=== PATIENT | female | born 2000 | race Caucasian/White ===

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

== ENCOUNTER 2020-06-14 10:04 | Emergency (ER) | payer OTHER ==
[~2020-06-14] VITALS: Ht 157.5 cm; Wt 90.7 kg
[~2020-06-14 10:04] MED LIST changes: +COMPAZINE10 MG PO; +IBUP600 PO
[2020-06-14] MEDS ORDERED: ALBU90OI INH (11:49)
== END 2020-06-14 11:53 | disposition home or self-care (01) ==
LOC: ER 10:04
DX: T59.91XA Toxic effect of unspecified gases, fumes and vapors, accidental (unintentional), initial encounter (principal); J68.3 Other acute and subacute respiratory conditions due to chemicals, gases, fumes and vapors; J40 Bronchitis, not specified as acute or chronic; Z86.718 Personal history of other venous thrombosis and embolism
CPT/HCPCS: 94640; 99283; A9270

== ENCOUNTER 2020-08-19 12:12 | Emergency (ER) | payer OTHER ==
[~2020-08-19] VITALS: Ht 157.5 cm; Wt 91.2 kg
[2020-08-19] MEDS ORDERED: Crutch1 EACH XX (13:23)
[2020-08-19] MEDS ORDERED: TRAM50 PO (13:23)
[2020-08-19] MEDS ORDERED: IBUP600 PO (13:23)
== END 2020-08-19 13:33 | disposition home or self-care (01) ==
LOC: ER 12:12
DX: S93.421A Sprain of deltoid ligament of right ankle, initial encounter (principal); Z87.442 Personal history of urinary calculi; V49.9XXA Car occupant (driver) (passenger) injured in unspecified traffic accident, initial encounter; Y92.410 Unspecified street and highway as the place of occurrence of the external cause
CPT/HCPCS: 29515; 73610; 73630; 99283-25; A9270

== ENCOUNTER 2020-11-06 14:16 | Emergency (ER) | payer OTHER ==
[~2020-11-06] VITALS: Ht 157.5 cm; Wt 93.0 kg
[~2020-11-06 14:16] MED LIST changes: +Crutch1 EACH XX
== END 2020-11-06 15:35 | disposition home or self-care (01) ==
LOC: ER 14:16
DX: S93.401A Sprain of unspecified ligament of right ankle, initial encounter (principal); X50.1XXA Overexertion from prolonged static or awkward postures, initial encounter
CPT/HCPCS: 29515; 73610; 99283-25; L1906

== ENCOUNTER 2020-11-17 10:47 | Emergency (ER) | payer OTHER ==
[~2020-11-17] VITALS: Ht 157.5 cm; Wt 91.6 kg
[2020-11-17 11:52] LABS: Source, Urine Clean Catch
[2020-11-17 12:00] LABS: Appearance, Urine Clear (Clear); Bilirubin, Urine Neg (Neg); Blood, Urine Neg (Neg); Color, Urine Yellow (P-Yellow); Glucose Qualitative, Urine Neg (Neg); Ketones, Urine Neg (Neg); Leukocyte Esterase, Urine Neg (Neg); Nitrite, Urine Neg (Neg); Protein, Urine Neg (Neg); Urobilinogen, Urine NORM (Normal)
[2020-11-17 12:17] LABS: BASOPHILS ABSOLUTE AUTO 0.05 K/mm3 (0.00-0.23); BASOPHILS PERCENT AUTO 1 % (0-2); EOSINOPHILS ABSOLUTE AUTO 0.23 K/mm3 (0.00-0.68); EOSINOPHILS PERCENT AUTO 3 % (0-6); Hematocrit 40.2 % (33.0-51.0); Hemoglobin 12.9 g/dL (11.5-16.0); IMMATURE GRAN ABSOLUTE AUTO 0.02 K/mm3 (0.00-0.10); IMMATURE GRAN PERCENT AUTO 0 % (0-1); LYMPHOCYTES ABSOLUTE AUTO 2.59 K/mm3 (0.84-5.20); LYMPHOCYTES PERCENT AUTO 37 % (21-46); MONOCYTES PERCENT AUTO 7 % (4-13); Mean Corpuscular HGB 27.8 pg (26.0-34.0); Mean Corpuscular HGB Conc 32.1 g/dL (31.5-36.5); Mean Corpuscular Volume 87 fL (80-100); Mean Platelet Volume 10.1 fL (9.1-12.4); NEUTROPHILS ABSOLUTE AUTO 3.59 K/mm3 (1.96-9.15); NEUTROPHILS PERCENT AUTO 51 % (41-73); Platelet Count 290 K/mm3 (150-400); RDW Coefficient Variation 13.2 % (11.7-14.2); RDW Standard Deviation 41.3 fL (35.1-46.3); Red Blood Cell Count 4.64 M/mm3 (3.80-5.20); White Blood Cell Count 6.98 K/mm3 (4.00-11.30)
[2020-11-17 12:27] LABS: Alanine Aminotransfer (ALT/SGP 21 U/L (12-78); Albumin, Blood 3.6 g/dL (3.4-5.0); Albumin/Globulin Ratio 0.8 (0.8-1.8); Alk Phos 84 U/L (50-136); Anion Gap 5 mmol/L (6-16); Aspartate Aminotrans (AST/SGOT 25 U/L (12-37); Bilirubin, Total 0.5 mg/dL (0.1-1.0); Blood Urea Nitrogen 10 mg/dL (8-24); Bun/Creatinine Ratio 13.7 (12.0-20.0); CO2, Blood 25 mmol/L (21-32); Calcium, Blood 8.7 mg/dL (8.5-10.1); Chloride, Blood 107 mmol/L (98-108); Creatinine, Blood 0.73 mg/dL (0.40-1.00); Globulin, Blood 4.3 g/dL (2.2-4.0); Glomerular Filtration Rate >60 (60-); Glucose, Blood 86 mg/dL (70-99); Potassium, Blood 3.9 mmol/L (3.5-5.5); Sodium, Blood 137 mmol/L (136-145); Total Protein, Blood 7.9 g/dL (6.4-8.2)
[2020-11-17] MEDS ORDERED: IBUP800 PO (13:50)
[2020-11-17] MEDS ORDERED: ONDA4ODT MM (13:50)
== END 2020-11-17 14:12 | disposition home or self-care (01) ==
LOC: ER 10:47
PROVIDERS: Emergency Medicine
DX: R10.9 Unspecified abdominal pain (principal)
CPT/HCPCS: 76770; 80053; 81003; 81025; 85025; 96374; 96375; 99284-25; J1885; J2405

== ENCOUNTER 2020-12-28 12:36 | Emergency (ER) | payer OTHER ==
[~2020-12-28] VITALS: Ht 157.5 cm; Wt 93.0 kg
[~2020-12-28 12:36] MED LIST changes: +ONDA4ODT MM
== END 2020-12-28 14:56 | disposition home or self-care (01) ==
LOC: ER 12:36
DX: U07.1 COVID-19 (principal)
CPT/HCPCS: 99283

== ENCOUNTER → 2021-04-05 | Outpatient (CLI) | payer OTHER ==
[2021-04-07 04:06] LABS: CHLAMYDIA TRACHOMATIS, NAA Negative (Negative)
== END | disposition home or self-care (01) ==
LOC: LAB SHORT 13:12
PROVIDERS: Advanced Practice Midwife
DX: Z11.3 Encounter for screening for infections with a predominantly sexual mode of transmission (principal)
CPT/HCPCS: 87491; 87591